=== PATIENT | male | born 1950 | race Caucasian/White ===

== ENCOUNTER 2024-02-28 09:40 | Outpatient (CLI) | payer MEDICARE, OTHER, SELFPAY ==
--- NOTE | 2024-02-28 10:17 | EST_ITS ---
Patient Info Name: Rubin Yadav Age: 73 years : 1950 Gender: Male Ht: 72 in Wt: 216 lbs BSA: 2.25 m2 HR: 66 bpm BP: 137 / 88 mmHg Heart Rhythm: Sinus Rhythm Exam Date: 02/28/2024 10:29 AM Exam Location: Echo Lab Patient Status: Outpatient Admit Date: 02/28/2024 Staff Ordering Physician: Kenisha Nicole PA-C Attending Provider: Kenisha Nicole PA-C Exercise Technologist: Tamiko Stauffer CT Exercise Physician: Bk Crystal DO Exam Type: CA stress test treadmill Study Info Indications R07.89 - Other chest pain A pharmacological stress test was performed. Summary 1. 1. Negative Dann exercise stress test for ischemic ST changes by ECG criteria. 2. 2. Reduced functional capacity, achieving 7 METs of workload. 3. 3. Hypertensive response to exercise. 4. 4. Appropriate HR response to exercise. 5. 5. Appropriate HR recovery at 1 minute post exercise. 6. 6. No imaging with stress testing. 7. 7. Patient informed of the above results. Protocol: Dann Stress ECG Details Stage: REST Duration (min): 1 min : 9 sec Speed (mph): 0.0 Grade (%): 0 HR (bpm): 66 SBP (mmHg): 137 DBP (mmHg): 88 METS: --- Stage: REST Duration (min): 8 min : 25 sec Speed (mph): 0.0 Grade (%): 0 HR (bpm): 65 SBP (mmHg): 137 DBP (mmHg): 88 METS: --- Stage: STAGE 1 Duration (min): 1 min : 0 sec Speed (mph): 1.7 Grade (%): 10 HR (bpm): 99 SBP (mmHg): 137 DBP (mmHg): 88 METS: --- Stage: STAGE 1 Duration (min): 2 min : 0 sec Speed (mph): 1.7 Grade (%): 10 HR (bpm): 109 SBP (mmHg): 137 DBP (mmHg): 88 METS: --- Stage: STAGE 1 Duration (min): 3 min : 0 sec Speed (mph): 1.7 Grade (%): 10 HR (bpm): 115 SBP (mmHg): 170 DBP (mmHg): 98 METS: --- Stage: STAGE 2 Duration (min): 1 min : 0 sec Speed (mph): 2.5 Grade (%): 12 HR (bpm): 124 SBP (mmHg): 170 DBP (mmHg): 98 METS: --- Stage: STAGE 2 Duration (min): 2 min : 0 sec Speed (mph): 2.5 Grade (%): 12 HR (bpm): 131 SBP (mmHg): 206 DBP (mmHg): 95 METS: --- Stage: STAGE 1 Duration (min): 3 min : 0 sec Speed (mph): 1.7 Grade (%): 10 HR (bpm): 115 SBP (mmHg): 170 DBP (mmHg): 98 METS: --- Stage: STAGE 2 Duration (min): 3 min : 0 sec Speed (mph): 2.5 Grade (%): 12 HR (bpm): 139 SBP (mmHg): 204 DBP (mmHg): 98 METS: --- Stage: RECOVERY Duration (min): 1 min : 0 sec Speed (mph): 0.0 Grade (%): 0 HR (bpm): 117 SBP (mmHg): 220 DBP (mmHg): 94 METS: --- Stage: RECOVERY Duration (min): 1 min : 25 sec Speed (mph): 0.0 Grade (%): 0 HR (bpm): 109 SBP (mmHg): 220 DBP (mmHg): 94 METS: --- Rest HR: 65 bpm Peak HR: 139 bpm Rest Sys BP: 137 mmHg Peak Sys BP: 220 mmHg Max Pred HR: 148 bpm % Max Pred HR: 94 % Target HR: 126 bpm Max RPP: 30,580 bpm*mmHg Jones Score: 1 BP Response: Patient exhibited a hypertensive response with stress Termination Reason: Reached target heart rate or worklo
== END 2024-02-28 09:41 | disposition home or self-care (01) ==
LOC: ANHCARD 09:41
PROVIDERS: PCP Family Medicine; Visit Provider Physician Assistant
DX: R07.89 Other chest pain (principal); E78.5 Hyperlipidemia, unspecified; I10 Essential (primary) hypertension; I45.10 Unspecified right bundle-branch block
CPT/HCPCS: 93017